=== PATIENT | female | born 1985 | race Caucasian/White ===

== ENCOUNTER 2020-03-31 05:56 | Day surgery (SDCO) | payer OTHER ==
[~2020-03-31 05:56] MED LIST: FEOSOL325 M1 PO
[2020-03-31 06:40] LABS: BILIRUBIN NEGATIVE (NEGATIVE); BLOOD 3+ Ery/uL (NEGATIVE); COLOR YELLOW (YELLOW); GLUCOSE (U) TRACE mg/dL (NORMAL); LEUKOCYTES TRACE Leu/uL (NEGATIVE); NITRITE NEGATIVE (NEGATIVE); PROTEIN 2+ mg/dL (NEGATIVE); SPECIFIC GRAVITY 1.025 (1.001-1.030); UROBILINOGEN 0.2 mg/dL (0.2-1.0)
[2020-03-31 06:51] LABS: CLARITY CLOUDY (CLEAR)
[2020-03-31 06:54] LABS: D-DIMER 0.91 ug/mLFEU (0.00-0.41); URINARY WBC RARE
[2020-03-31] MEDS ORDERED: CEPHALEXIN500 M1 PO (06:55)
[2020-03-31 06:57] LABS: BACTERIA 3+; SQUAMOUS EPITHELIAL CELLS >50
[2020-03-31 07:01] LABS: ALBUMIN 3.1 g/dL (3.4-5.0); BILIRUBIN - DIRECT 0.1 mg/dL (0.00-0.20); BILIRUBIN - TOTAL 0.1 mg/dL (0.2-1.0); BUN/CREAT RATIO (CALC) 14.1 RATIO; CREATININE 0.64 mg/dL (0.51-0.95); GLOBULIN (CALCULATION) 4.1 g/dL; POTASSIUM 3.8 mmol/L (3.5-5.1); TOTAL PROTEIN 7.2 g/dL (6.4-8.2); URIC ACID 3.3 mg/dL (2.6-6.2)
== END 2020-03-31 09:33 | disposition home or self-care (01) ==
LOC: FER 05:56 → FOB 07:17
PROVIDERS: Student in an Organized Health Care Education/Training Program; ADMIT Obstetrics & Gynecology
DX: O42.912 Preterm premature rupture of membranes, unspecified as to length of time between rupture and onset of labor, second trimester (principal); O24.419 Gestational diabetes mellitus in pregnancy, unspecified control; O34.32 Maternal care for cervical incompetence, second trimester; O99.212 Obesity complicating pregnancy, second trimester; O21.8 Other vomiting complicating pregnancy; O16.2 Unspecified maternal hypertension, second trimester; Z87.59 Personal history of other complications of pregnancy, childbirth and the puerperium; Z90.49 Acquired absence of other specified parts of digestive tract; Z98.890 Other specified postprocedural states; Z3A.17 17 weeks gestation of pregnancy
CPT/HCPCS: 36415; 80048; 80076; 81001; 83615; 84112; 84550; 84702; 85362; 85379; 85384; 99284; G0378; J7120